=== PATIENT | male | born 1955 ===

== ENCOUNTER 2025-03-30 12:00 | Outpatient (AMB) | payer OTHER, SELFPAY ==
--- NOTE | 2025-03-30 12:44 | A.OFFPC_ITS ---
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 Patient needs form filled out. 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 Name: vivienne [id number] Allergies Sulfa (Sulfonamide Antibiotics) (Sulfa (Sulfonamides)) Allergy (Mild, Verified 03/30/25 13:34) RASH Medication List - Last Reviewed 03/30/25 by Paul Navarro MA albuterol sulfate 90 mcg/actuation 2 puffs inhalation Q4H PRN aspirin 81 mg PO DAILY azelastine 0.05% 1 drp ophthalmic (eye) BID PRN cetirizine 10 mg PO DAILY PRN docusate sodium (Stool Softener) 100 mg PO BID esomeprazole magnesium 20 mg PO DAILY fluoxetine 20 mg PO DAILY fluticasone propion-salmeterol 250-50 mcg/dose inhalation fluticasone propionate 50 mcg/actuation 1 spray intranasal BID hydrochlorothiazide 12.5 mg PO DAILY ibuprofen 800 mg PO Q8H montelukast 10 mg PO DAILY pregabalin 100 mg PO BID simvastatin 20 mg PO BEDTIME trazodone mg PO zolpidem 10 mg PO BEDTIME PRN zolpidem 5 mg PO BEDTIME PRN Tobacco use date assessed: 03/30/25 Fall risk assessment: 1 Fall in past year Last assessed Fall Risk: 03/30/25 Dental Screening Dental Screen Date: 03/30/25 Did you have a dental visit in the last 12 months?: Yes Did you have a dental problem in the last 6 months where you did not have access to dental care?: No Was dental information given to patient?: Patient has dentist HPI HPI Comments History of Present Illness Details 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 Colon: Vaccines: Tdap 2024, Shingles, Pneumococcal UTD, Flu 03/2025 AAA screen EKG: [facility] Care: Pulm referred to [facility] for PALLAVI mgmt and asthma Visual Acuity: Hearing Screening: ACP: Dietary/Nutrition/Exercise Edu provided: Y Here today to [facility] care Previous PCP: Tracy No records HTN c/o headache and dizziness w/ position changes; reports compliance w/ HCTZ Asthma/Allergies controlled on current meds GERD/constipation: controlled on current meds Trouble swallowing; had Xray done; asking about results. I do not have any records. This was done at [place] ED. MDD/Insomnia controlled on current meds, traz 50mg; was on ambien but stopped. HLD on statin and ASA, due for labs to assess control Neuropathy cont despite pregabalin use Obese BMI > 32 PALLAVI on CPAP repotrs having issues w/ machine. Will refer to [facility] Pulm to manage along w/ asthma PVD has vascular changes to legs refer to [facility] vascular HX of tinea pedia and thickened toe nails. REfer to [facility] podiatry Exam awake alert NAD MMM RRR LS CTAB chronic hemosiderin changes to anterior lower legs; PP intact. thickened toe nails bilat; missing R great toe nail Mood and affect appropriate Plan Get labs today Get records to review Cont all meds Refer to [facility] Pulm, Vascular and Podiatry Refills sent as requested RTO 2 weeks for BP recheck Total time spent caring for the patient today was 45 minutes. This includes time spent before the visit reviewing the chart, time spent during the visit, and time spent after the visit on documentation, reviewing laboratory results, diagnostic imaging, medications, performing a medically necessary evaluation, counseling on diagnoses, care coordination, ordering appropriate tests, ordering appropriate medications, review of tests performed by other providers, reporting test results with the patient, communication with other healthcare providers. [facility] Medical History (Updated 03/30/25 @ 13:42 by OVI Rodríguez) Allergic Arthritis Asthma Depression GERD (gastroesophageal reflux disease) HTN (hypertension) Neuropathy Sinusitis Spine disorder Surgical History (Updated 03/30/25 @ 12:57 by Paul Navarro MA) History of ankle surgery History of right hip replacement Family History (Updated 03/30/25 @ 12:58 by Paul Navarro MA) Brother Asthma Substance abuse Sister Diabetes Social History (Updated 03/30/25 @ 12:57 by Paul Navarro MA) Household Members: Spouse Both parents involved: No Caregiver staying overnight: No Housing: Apartment Are you a primary medicare biller to a significant other at home: No Do you presently have visiting nurse or other home services: Yes 75 years or older and lives alone: No Alcohol intake: never Patient Tobacco Use Status: Never used Tobacco e-Cigarette/Vaping Use: Never Used Second Hand Smoke Exposure: No service: No Current occupational status: disabled Current occupational exposures/hazards: No Cognitive needs: No Hearing needs: No Vision needs: Yes (wear glasses) Questionnaire PHQ-9 Over the last 2 weeks, how often have you been bothered by any of the following problems? 1. Little interest or pleasure in doing things: not at all 2. Feeling down, depressed, or hopeless: not at all 3. Trouble falling or staying asleep, or sleeping too much: not at all 4. Feeling tired or having little energy: not at all 5. Poor appetite or overeating: not at all 6. Feeling bad about yourself - or that you are a failure or have let yourself or your family down: not at all 7. Trouble concentrating on things, such as reading the newspaper or watching television: not at all 8. Moving or speaking so slowly that other people could have noticed. Or the opposite - being so fidgety or restless that you have been moving around a lot more than usual: not at all 9. Thoughts that you would be better off or of hurting yourself in some way: not at all Total score: 0 Depression Screening Interpretation: Negative Depression Screening Done: Yes 10664 - PHQ-9 Billing: Yes Source: Developed by Drs. Adeel Hassan, Ayana Best, Hussain Gao and colleagues, with an educational annetta from [employer]. Thrive Questionnaire Date Thrive assessed: 03/30/25 I am a: Patient What is your living situation today?: I have a steady place to live Within the past 12 months, did the food you bought not last and you didn't have the money to get more?: Never true Within the past 12 months, did you worry whether your food would run out before you got money to buy more?: Never true Do you have trouble paying for medicines?: No Do you have trouble getting transportation to medical appointments?: No Do you have trouble paying your heating and electricity bill?: No Do you have trouble taking care of your child, family member or friend?: No Do you have trouble with day-to-day activities such as bathing, preparing meals, shopping, managing finances, etc.?: No Are you currently unemployed and looking for a job?: No Are you interested in more education?: No Please select the resources that you would like help with: None Currently or been in a relationship where the following occur: No concerns reported THRIVE Score: 0 AUDIT C Alcohol Use Questionnaire (AUDIT-C) 1. How often do you have a drink containing alcohol?: Never 3. How often do you have six or more drinks on one occasion?: Never Total Score: 0 Score Reviewed/Action Taken: Yes ELISABET-7 AMB Questionnaire ELISABET-7 Date ELISABET - 7 assessed: 03/30/25 Feeling nervous, anxious, or on edge: 0 = Not at all Not being able to stop or control worryin = Not at all Worrying too much about different things: 0 = Not at all Trouble relaxin = Not at all Being so restless that it is hard to sit still: 0 = Not at all Becoming easily annoyed or irritable: 0 = Not at all Feeling afraid as if something awful might happen: 0 = Not at all Total ELISABET-7 score (0-4 normal; 5-9 mild; 10-14 moderate; 15-21 severe): 0 Source: Developed by Drs. Adeel Hassan, Ayana Best, Hussain Gao and colleagues, with an educational annetta from [employer]. ELISABET-7 Assessment Billing ELISABET-7 Assessment Tool: ELISABET-7 Assessment 74483 ACT Questionnaire In the past 4 weeks, how much of the time did your asthma keep you from getting as much done at work, school or at home?: None of the time During the past 4 weeks, how often have you had shortness of breath?: Not at all During the past 4 weeks, how often did your asthma symptoms wake you up at night or earlier than usual in the morning?: Not at all During the past 4 weeks, how often have you had to use your rescue inhaler or nebulizer medication?: Not at all How would you rate your asthma control during the past 4 weeks?: Completely controlled ACT Interpretation: Negative Score: 25 Physical exam (Primary Care) Vital Signs: Last Vital Signs Temp 97.2 F 03/30/25 12:51 Pulse 55 03/30/25 12:51 Resp 14 03/30/25 12:51 BP 152/80 H 03/30/25 12:51 Pulse Ox 99 03/30/25 12:51 Oxygen Delivery Method Room Air 03/30/25 12:51 BMI result Body Mass Index 32.4 BMI Assessment/Plan discussion: High BMI High, discussed plan: lifestyle Tobacco/Smoking Status: Tobacco use Status Tobacco use date assessed 03/30/25 03/30/25 12:47 Patient Tobacco Use Status Never used Tobacco 03/30/25 12:57 e-Cigarette/Vaping Use Never Used 03/30/25 12:57 PHQ-9: PHQ-9 Score PHQ-9: Total score 0 03/30/25 12:47 Depression Screening Interpretation: Negative Thrive Assessment: Date of Thrive Assessment Date Thrive assessed 03/30/25 03/30/25 12:47 Currently or been in a relationship where the following occur: No concerns reported Coding Level of Care Code New Pt Level 4 (01998) Complex EM visit Add On G2211 Diagnoses Encounter to establish care with new provider Z76.89 Laboratory exam ordered as part of routine general medical examination Z00.00 Mild intermittent asthma in adult without complication J45.20 Environmental allergies Z91.09 Obesity (BMI 30-39.9) E66.9 HLD (hyperlipidemia) E78.5 Chronic GERD K21.9 Chronic constipation K59.09 Insomnia G47.00 MDD (major depressive disorder), recurrent episode F33.9 HTN (hypertension) I10 PVD (peripheral vascular disease) I73.9 Peripheral neuropathy G62.9 Encounter for nail care Z76.89 Additional Codes ELISABET-7 Assessment Billing - ELISABET-7 Assessment Tool: ELISABET-7 Assessment 33725 ([id number]) PHQ-9 - 97402 - PHQ-9 Billing: Yes ([id number]) Asthma Control Questionnaire - ACT Interpretation: Negative ([id number]) Assessment & Plan Assessment & Plan (1) Encounter to establish care with new provider: Code(s): Z76.89 - Persons encountering health services in other specified circumstances (2) Laboratory exam ordered as part of routine general medical examination: Code(s): Z00.00 - Encounter for general adult medical examination without abnormal findings Category: Medical (3) Mild intermittent asthma in adult without complication: Code(s): J45.20 - Mild intermittent asthma, uncomplicated Category: Medical (4) Environmental allergies: Code(s): Z91.09 - Other allergy status, other than to drugs and biological substances Category: Medical (5) Obesity (BMI 30-39.9): Code(s): E66.9 - Obesity, unspecified Category: Medical (6) HLD (hyperlipidemia): Code(s): E78.5 - Hyperlipidemia, unspecified Category: Medical (7) Chronic GERD: Code(s): K21.9 - Gastro-esophageal reflux disease without esophagitis Category: Medical (8) Chronic constipation: Code(s): K59.09 - Other constipation Category: Medical (9) Insomnia: Code(s): G47.00 - Insomnia, unspecified Category: Medical (10) MDD (major depressive disorder), recurrent episode: Code(s): F33.9 - Major depressive disorder, recurrent, unspecified Category: Medical (11) HTN (hypertension): Code(s): I10 - Essential (primary) hypertension Category: Medical (12) PVD (peripheral vascular disease): Code(s): I73.9 - Peripheral vascular disease, unspecified Category: Medical (13) Peripheral neuropathy: Code(s): G62.9 - Polyneuropathy, unspecified Category: Medical (14) Encounter for nail care: Code(s): Z76.89 - Persons encountering health services in other specified circumstances Category: Medical Plan . Orders: Orders Complete Blood Count no Diff Today E66.9 - Obesity, unspecified, E78.5 - Hyperlipidemia, unspecified, I10 - Essential (primary) hypertension, Z00.00 - Encounter for general adult medical examination without abnormal findings Lipid Panel Today E66.9 - Obesity, unspecified, E78.5 - Hyperlipidemia, unspecified, I10 - Essential (primary) hypertension, Z00.00 - Encounter for general adult medical examination without abnormal findings Prostate Specific Antigen Scr Today E66.9 - Obesity, unspecified, E78.5 - Hyperlipidemia, unspecified, I10 - Essential (primary) hypertension, Z00.00 - Encounter for general adult medical examination without abnormal findings Vitamin D 25-OH Total Today E66.9 - Obesity, unspecified, E78.5 - Hyperlipidemia, unspecified, I10 - Essential (primary) hypertension, Z00.00 - En counter for general adult medical examination without abnormal findings Comprehensive Met. Panel Today E66.9 - Obesity, unspecified, E78.5 - Hyperlipidemia, unspecified, I10 - Essential (primary) hypertension, Z00.00 - Encounter for general adult medical examination without abnormal findings Hemoglobin A1c Today E66.9 - Obesity, unspecified, E78.5 - Hyperlipidemia, unspecified, I10 - Essential (primary) hypertension, Z00.00 - Encounter for general adult medical examination without abnormal findings Microalbumin, Random (w Creat) Today E66.9 - Obesity, unspecified, E78.5 - Hyperlipidemia, unspecified, I10 - Essential (primary) hypertension, Z00.00 - Encounter for general adult medical examination without abnormal findings TSH reflex Free T4 Today E66.9 - Obesity, unspecified, E78.5 - Hyperlipidemia, unspecified, I10 - Essential (primary) hypertension, Z00.00 - Encounter for general adult medical examination without abnormal findings Vitamin B12 and Folate Today E66.9 - Obesity, unspecified, E78.5 - Hyperlipidemia, unspecified, I10 - Essential (primary) hypertension, Z00.00 - Encounter for general adult medical examination without abnormal findings Referrals Pulmonology Referral G47.33 - Obstructive sleep apnea (adult) (pediatric), J45.20 - Mild intermittent asthma, uncomplicated Vascular Surgery Referral I73.9 - Peripheral vascular disease, unspecified Podiatry Referral G62.9 - Polyneuropathy, unspecified, Z76.89 - Persons encountering health services in other specified circumstances Medications: New trazodone 50 mg PO BEDTIME 90 tabs 2RF fluoxetine 20 mg PO DAILY 90 caps 2RF esomeprazole magnesium 20 mg PO DAILY 90 caps 2RF albuterol sulfate 90 mcg/actuation 2 puffs inhalation Q4H PRN 6.7 grams 2RF wheezing montelukast 10 mg PO DAILY 90 tabs 2RF Discontinued zolpidem Discontinued Reason: Order 10 mg PO BEDTIME PRN insomnia Patient Instructions: Walk-In Care (Urgent Care): We Make it Easy Walk-in for urgent medical issues such as: ? Seasonal Allergies ? Insect Bites ? Cough ? Diarrhea ? Acute Asthma Attacks ? Back, Knee or Joint Pain ? Ear Infection ? Fever without a Rash ? Headaches ? Nausea ? [place] [facility], Rash or Skin Irritation ? Sore Throat ? Sports Physicals ? Vomiting Most insurances are accepted. Patients do not need to be part of the [facility] to seek care at the walk-in clinic. Locations [address] [place] [address] Open Thursday through Thursday 8am-5pm *Hours may vary due to staffing availability. To confirm Walk-In Care hours please call. [facility] , [place] [address] ? [phone] [facility] Walk-In Care in [place] provides services to ages 18 and over. Open Thursday-Thursday: 7 a.m. to 5 p.m. and Thursday: 9 a.m. to 3 p.m.* *Hours may vary due to staffing availability. To confirm Walk-In Care hours in [place], please call [phone]. [address] [place] [address] ? [phone] [facility] Walk-In Care in [place] provides services to ages 12 and over. Open Thursday-Thursday: 8 a.m. to 5 p.m. Hours may vary due to staffing availability. To confirm Walk-In Care hours in [place], please call [phone]. LABORATORY SERVICES: [facility] Lab ? Primary Location [address] [place] [address] Thursday through Thursday 6:00 AM ? 5:00 PM Thursday 7:00 AM ? 11:00 AM* [phone] The [facility] Lab is centrally located near the front entrance of the [facility] for easy outpatient access. Convenient parking is provided for outpatients. *Hours may vary due to staffing availability. To confirm Laboratory hours for any location, please call [phone]. Offsite Location For your convenience, we offer offsite laboratory draw stations at the following locations: [address] [place] [address] ? [facility] [address], [address] Thursday through Thursday 7:30 AM ? 1:00 PM* [phone] *Hours may vary due to staffing availability. To confirm Laboratory hours for any location, please call [phone]. [place] ? [address] Thursday through Thursday 6:00 AM ? 3:30 PM* Thursday 6:30 AM ? 3 PM* [phone] *Hours may vary due to staffing availability. To confirm Laboratory hours for any location, please call [phone]. [address] [facility] Thursday through Thursday 7:30 AM ? 4:00 PM* [phone] *Hours may vary due to staffing availability. To confirm Laboratory hours for any location, please call [phone] [place] [address] Thursday through 9:00 AM ? 4:00 PM* *Hours may vary due to staffing availability. To confirm Laboratory hours for any location, please call [phone]. Appointments are not necessary. Walk-ins are welcome. Like all the departments throughout the [facility], our Lab undergoes frequent reviews to ensure the quality and accuracy of test results, and our staff takes special pride in its status as a nationally accredited facility. Patient Portal: [facility] ONE PATIENT. ONE RECORD. BETTER CARE. [facility] has a fully integrated, cutting- edge mobile electronic health information system that has revolutionized the way we care for our patients and manage our organization. This system improves communication and coordination enabling us to provide safe, higher-quality care, and an overall positive experience for staff and patients. Our first priority, as always, is to deliver the highest quality care possible. The system is running in the background supporting that priority. This portal is for all [facility] services and practices. If you are experiencing any technical difficulties with enrolling or logging into the Patient Portal please complete the [facility] Patient Portal Technical Support Form. [facility] now offers a new secure on-line interactive tool for patients to review their health information ? ?Patient Portal. This interactive web portal will enable patients and their families to take an active role in their care by providing easy, secure access to their h ealt information via the internet. The Patient Portal provides patients with instant access to their health information, including laboratory results, medications, allergies, demographic information, visit history, and more. In addition to managing their own care, parents and health care proxies with authorized consent will appreciate the ability to access the records of those individuals for whom they provide care. Please note: if you wish to gain access (Proxy) to another patient?s portal, you will be required to come to the Medical Records Department in person at [facility]. Both the patient giving proxy access and the proxy will need to provide photo identification and complete the appropriate authorization. The Patient Portal also allows track their appointments online. The [facility] Patient Portal also saves patients time by allowing them to submit updates to their demographic and contact information prior to their visits. Portal email notifications will also alert patients to any new activity on their portal, such as test results and new appointments. In order to initially enroll in the [facility] Patient Portal, you will need to enter some required information including the following: * your [facility] Medical Record number * your personal home email address * name * date of Please note: In order to enroll in the [facility] Patient Portal, we need to have your email address on file in your electronic medical record. ?The email address needs to be specific for one person (yourself) in order for your Portal enrollment to be successful. ?You can update your email address in person with our Registration staff when you are registering for a hospital visit. ?Otherwise, you will need to come to the Health Information Management (Medical Records) Department at [facility]. ?We are open from Thursday ? Thursday from 7:30 a.m. ? 4:30 p.m. ?You will be required to present a photo id. Once you have successfully enrolled in the Patient Portal, you will receive a one-time user id and password for the Portal, sent to your email address. ?This will allow you to log into the Patient Portal within 99 hrs and reset your own logon id and password, and define personal security questions. ?Once your permanent login and password have been set, you can log into the [facility] Patient Portal at any time via the blue button above or from the Portal Logon button on any page of the [facility] website. [facility] encourage all of our patients to enroll in Patient Portal as it presents a valuable opportunity for patients and their families to actively participate in their care and stay healthy Welcome to [facility]. ?We look forward to working with you.
[2025-03-30 12:51] VITALS: BP 152/80; PULSE 55; RESP 14; TEMP 36.2; O2SAT 99; BMI 32.4
[2025-03-30 13:44] VITALS: BP 150/88
== END 2025-03-30 13:49 | disposition home or self-care (01) ==
LOC: HO.HMCFM 12:01
PROVIDERS: PCP Nurse Practitioner Family; Visit Provider Nurse Practitioner Family
DX: J45.20 Mild intermittent asthma, uncomplicated (principal); E78.5 Hyperlipidemia, unspecified; Z91.09 Other allergy status, other than to drugs and biological substances; E66.9 Obesity, unspecified; Z68.32 Body mass index [BMI] 32.0-32.9, adult; K21.9 Gastro-esophageal reflux disease without esophagitis; K59.09 Other constipation; G47.00 Insomnia, unspecified; F33.9 Major depressive disorder, recurrent, unspecified; I10 Essential (primary) hypertension; I73.9 Peripheral vascular disease, unspecified; G62.9 Polyneuropathy, unspecified

== ENCOUNTER 2025-03-30 12:00 | Outpatient (REF) | payer OTHER, SELFPAY ==
[2025-03-30 18:09] LABS: Hematocrit 37.3 % (42.0-52.0); Hemoglobin 12.8 g/dl (14.0-18.0); Mean Corpuscular HGB Conc 34.3 g/dl (31.0-36.0); Mean Corpuscular Hemoglobin 29.8 pg (27.0-33.0); Mean Corpuscular Volume 86.7 fL (80.0-98.0); NRBC Abs Auto 0.000 X10*3/uL (0.0-0.012); NRBC Pct Auto 0.0 /100WBC (0.0-0.2); Platelet Count 186 X10*3/uL (160-400); Red Blood Count 4.30 X10*6/uL (4.60-5.80); White Blood Count 6.9 X10*3/uL (4.8-10.8)
[2025-03-30 18:16] LABS: Hemoglobin A1C 130.4006 umol/L
[2025-03-30 18:52] LABS: Alanine Aminotransferase 26 U/L (0-40); Albumin Level 4.2 g/dL (3.5-5.0); Alkaline Phosphatase 59 U/L (39-117); Anion Gap 11 (12-20); Aspartate Amino Transferase 43 U/L (5-37); Blood Urea Nitrogen 13 mg/dL (9-16); Calcium 9.2 mg/dL (8.4-10.2); Carbon Dioxide 28 mmol/L (22-29); Chloride 109 mmol/L (96-108); Cholesterol 137 mg/dL (<200); Estimated Glomerular Filt Rate > 60; HDL Cholesterol 57 mg/dL (>40); Potassium 4.5 mmol/L (3.3-5.1); Sodium 143 mmol/L (135-145); Total Protein 7.4 g/dL (6.5-8.0); Triglycerides 105 mg/dL (<150)
[2025-03-30 18:59] LABS: Folate 7.3 ng/mL (> or = 4.0); Vitamin B12 508 pg/mL (200-900)
== END 2025-03-30 12:01 | disposition home or self-care (01) ==
LOC: HO.WFDLDS 12:00
PROVIDERS: PCP Nurse Practitioner Family; Visit Provider Nurse Practitioner Family
DX: Z00.00 Encounter for general adult medical examination without abnormal findings (principal); Z12.5 Encounter for screening for malignant neoplasm of prostate; Z13.1 Encounter for screening for diabetes mellitus; Z76.89 Persons encountering health services in other specified circumstances; J45.20 Mild intermittent asthma, uncomplicated; E66.9 Obesity, unspecified; Z68.32 Body mass index [BMI] 32.0-32.9, adult; E78.5 Hyperlipidemia, unspecified; K21.9 Gastro-esophageal reflux disease without esophagitis; K59.09 Other constipation; G47.00 Insomnia, unspecified; F33.9 Major depressive disorder, recurrent, unspecified; I10 Essential (primary) hypertension; I73.9 Peripheral vascular disease, unspecified; G62.9 Polyneuropathy, unspecified; Z91.09 Other allergy status, other than to drugs and biological substances; K59.00 Constipation, unspecified; G47.33 Obstructive sleep apnea (adult) (pediatric); Z99.89 Dependence on other enabling machines and devices; Z71.3 Dietary counseling and surveillance
CPT/HCPCS: 36415; 80053; 80061; 82306; 82570; 82607; 82746; 83036; 84153; 84443; 85027; 96127; 96160; 99202

== ENCOUNTER 2025-05-02 11:08 | Outpatient (AMB) | payer OTHER, SELFPAY ==
--- NOTE | 2025-05-02 11:15 | MHC.OFFVIS ---
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 States his legs feel tingly at times, warm and painful when walking. 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 He reports discoloration and itchiness in the legs, which have persisted for a few years, with the right leg being more symptomatic. The patient is prediabetic, which may be contributing to his circulatory issues. Complaints include swelling of lower extremities, cramping, fatigue, and heaviness of the lower extremities. In addition he has an element of restless leg It has been affecting there daily activities including walking. It is noted more so in right leg. Patient denies any previous venous surgery or injections. Patient denies any history of DVT/ PE. Patient denies any history of phlebitis. Trial of compression includes - [id number] They now present for vascular evaluation regarding their varicose veins. [facility] Medical History Depression Neuropathy GERD (gastroesophageal reflux disease) Spine disorder Arthritis HTN (hypertension) Allergic Sinusitis Asthma Surgical History History of ankle surgery History of right hip replacement Family History Brother Asthma Substance abuse Sister Diabetes Social History Household Members: Spouse Both parents involved: No Caregiver staying overnight: No Housing: Apartment Are you a primary director of healthcare systems to a significant other at home: No Do you presently have visiting nurse or other home services: Yes 75 years or older and lives alone: No Alcohol intake: never Patient Tobacco Use Status: Never used Tobacco e-Cigarette/Vaping Use: Never Used Second Hand Smoke Exposure: No service: No Current occupational status: disabled Current occupational exposures/hazards: No Cognitive needs: No Hearing needs: No Vision needs: Yes (wear glasses) Review of Systems Const Reports as per HPI ENT Reports no additional complaints Card Denies chest pain, Denies chest pain at rest and Denies chest pain with activity Resp Denies chest congestion and Denies cough GI Reports no additional complaints Musc Details: pain over varicosities, aching of lower extremities, swelling, cramping, heaviness and tiredness, itching Denies abnormal gait Skin/Breast Reports pruritus and Denies wounds Neuro Reports no additional complaints and Denies abnormal gait Psych Denies no additional complaints Physical Exam Const General: cooperative, healthy appearing and comfortable Orientation/consciousness: oriented to person, oriented to place and oriented to time Neck Carotids: no bruits Chest Chest palpation & inspection: normal inspection of the chest and normal palpation of entire chest wall Resp Effort & Inspection: normal respiratory effort and able to speak in complete sentences Cardio Rate: regular rate Heart sounds: S1 normal heart sound present and S2 normal heart sound present Peripheral pulses: Peripheral pulses 2+ throughout GI Inspection: Yes normal to inspection Skin Other: +2 edema, large rope-like varicosities greater than 4 mm CEAP Classification C4 - skin color changes Ep - Etiology Primary As - superficial veins P - reflux General skin exam: dry skin Neuro General: oriented to person, oriented to place and oriented to time Extrem Right lower extremity: full ROM, normal capillary refill and edema Left lower extremity: full ROM, normal capillary refill and edema Psych Mental Status: mental status grossly normal Assessment & Plan Assessment & Plan (1) PVD (peripheral vascular disease): Code(s): I73.9 - Peripheral vascular disease, unspecified Category: Medical Plan: In terms of arterial disease I think he is stable. He does have palpable arterial pulses and does not demonstrate clinical stigmata of arterial disease. Due to the discoloration and swelling we will work him up for venous disease. (2) Varicose veins of right lower extremity with inflammation: Code(s): I83.11 - Varicose veins of right lower extremity with inflammation Category: Medical Plan: Patient may have an element of venous insufficiency. We have discussed the pathophysiology of this in addition I have given him an information pamphlet regarding this. I have taken the liberty of ordering venous insufficiency testing. The patient will follow up with us after testing. Thank you for allowing us to assist in his care. If there are any questions or concerns please do not hesitate to contact us. Orders: Orders US venous duplex LE BI Today I83.11 - Varicose veins of right lower extremity with inflammation Coding Level of Care Code New Pt Level 4 (73972) Diagnoses PVD (peripheral vascular disease) I73.9 Varicose veins of right lower extremity with inflammation I83.11
== END 2025-05-02 11:45 | disposition home or self-care (01) ==
LOC: HO.HVS 11:09
PROVIDERS: PCP Nurse Practitioner Family; Visit Provider Surgery Vascular Surgery
DX: I73.9 Peripheral vascular disease, unspecified (principal); I83.11 Varicose veins of right lower extremity with inflammation
CPT/HCPCS: 99204

== ENCOUNTER → 2025-05-02 11:08 | Outpatient (BNVA) | payer OTHER, SELFPAY | PROVIDERS: PCP Nurse Practitioner Family; Visit Provider Surgery Vascular Surgery | DX: I83.11 Varicose veins of right lower extremity with inflammation (principal); I73.9 Peripheral vascular disease, unspecified | CPT/HCPCS: 99202 ==

== ENCOUNTER 2025-05-10 13:45 | Outpatient (AMB) | payer OTHER, SELFPAY ==
[2025-05-10 13:56] VITALS: BMI 32.9
--- NOTE | 2025-05-10 13:56 | A.OFFVIS_ITS ---
Vital Signs 05/10/25 13:56 Height 5 ft 5 in Weight 198 lb BMI 32.9 Intake Visit Reasons: Peripheral neuropathy Intake Note: Isidro is a 69 year old male who presents today as a new patient for an evaluation of his peripheral neuropathy. this has been going on for over 3 years however he is currently not a diabetic. Patient is currently prescribed pregabalin by his PCP. Facilities Maintenance Assistant Required: Yes Facilities Maintenance Assistant Services: Facilities Maintenance Assistant Present Facilities Maintenance Assistant Name: [id number] Allergies Sulfa (Sulfonamide Antibiotics) (Sulfa (Sulfonamides)) Allergy (Mild, Verified 05/10/25 13:57) RASH Medication List - Last Reconciled 05/10/25 by Tamia Wyatt DPM albuterol sulfate 90 mcg/actuation 2 puffs inhalation Q4H PRN ammonium lactate 12% 1 appl topical BID aspirin 81 mg PO DAILY azelastine 0.05% 1 drp ophthalmic (eye) BID PRN cetirizine 10 mg PO DAILY PRN docusate sodium (Stool Softener) 100 mg PO BID esomeprazole magnesium 20 mg PO DAILY fluoxetine 20 mg PO DAILY fluticasone propion-salmeterol 250-50 mcg/dose inhalation fluticasone propionate 50 mcg/actuation 1 spray intranasal BID hydrochlorothiazide 12.5 mg PO DAILY ibuprofen 800 mg PO Q8H montelukast 10 mg PO DAILY pregabalin 100 mg PO BID simvastatin 20 mg PO BEDTIME trazodone 50 mg PO BEDTIME HPI Comments Details: The patient is a 69-year-old male with a past medical history as seen below p resenting with issues related to his feet, including nail changes, thickened skin, and neuropathy. The patient reports tingling sensations, burning, and numbness to the lower extremities. Patient also states that he has peripheral vascular disease and has noted discoloration and changes to the skin. The patient has noticed changes in his toenails, including increased thickness, discoloration, and changes to nail shape. Patient previously had total nail avulsions with matrixectomy to bilateral hallucal nails but states that he has noticed partial growth of the toenail to the right hallux. The patient also reports skin dryness, particularly on the heels and plantar aspect of the feet. He denies any recent pedal injuries. He denies any other pedal concerns. COUNTS INCLUDE 234 BEDS AT THE [facility] Medical History Depression Neuropathy GERD (gastroesophageal reflux disease) Spine disorder Arthritis HTN (hypertension) Allergic Sinusitis Asthma Surgical History History of ankle surgery History of right hip replacement Family History Brother Asthma Substance abuse Sister Diabetes Social History Household Members: Spouse Both parents involved: No Caregiver staying overnight: No Housing: Apartment Are you a primary intensive care unit registered nurse to a significant other at home: No Do you presently have visiting nurse or other home services: Yes 75 years or older and lives alone: No Alcohol intake: never Patient Tobacco Use Status: Never used Tobacco e-Cigarette/Vaping Use: Never Used Second Hand Smoke Exposure: No service: No Current occupational status: disabled Current occupational exposures/hazards: No Cognitive needs: No Hearing needs: No Vision needs: Yes (wear glasses) Review of Systems Const Details: - Neurological: Reports tingling, numbness, and burning sensations. - Integumentary: Reports toenail changes and skin dryness on the feet. All systems reviewed & are unremarkable except as noted in HPI and below Physical Exam Vital Signs: BMI result Body Mass Index 32.9 Extrem Other: Bilateral lower extremity focused physical exam: Derm: Toenails X 9 noted to be discolored, dystrophic, and thickened with subungual debris noted. Evidence of total nail avulsion to the left hallux with no nail growth. Partial nail growth noted to the right hallux. No open lesions abrasions or wounds noted. Hyperkeratotic areas noted to the plantar aspect of the feet diffusely. Xerosis of skin noted. No clinical signs of infection. No purulence, bleeding, or drainage noted. Hyperpigmentation noted diffusely to the lower extremities. Vascular: DP pulses palpable. PT pulses nonpalpable. Capillary refill time less than 3 seconds. Temperature gradient warm to warm. Pedal hair diminished. Varicosities noted. Minimal edema noted. Neuro: Protective sensation is grossly diminished. MSK: No pain on palpation to the lower extremities. Range of motion of the forefoot, hindfoot, and ankles within normal limits. No crepitus or fluctuance noted. Nonantalgic unassisted gait noted. No gross abnormalities noted. Assessment & Plan Assessment & Plan (1) Tinea unguium: Code(s): B35.1 - Tinea unguium Category: Medical (2) Nail dystrophy: Code(s): L60.3 - Nail dystrophy Category: Medical (3) Nail disorder: Code(s): L60.9 - Nail disorder, unspecified Category: Medical (4) Other specified epidermal thickening: Code(s): L85.8 - Other specified epidermal thickening Category: Medical (5) Xerosis of skin: Code(s): L85.3 - Xerosis cutis Category: Medical Plan Patient was informed and verbally consented to the use of an ambient scribe for clinic note documentation during this visit. I discussed with the patient the presence of onychomycosis and the importance of regular nail care to prevent complications due to neuropathy. We also talked about the use of ammonium lactate to address skin dryness and the potential benefits of compression socks for managing leg swelling and bruising. - Prescribed ammonium lactate to be used twice daily. - Advised patient to avoid barefoot walking and to wear supportive shoe gear. - Recommend routine nail care due to complications from neuropathy. - Encouraged the use of compression socks to manage leg swelling and bruising. RTC in 9 weeks. Medications: New ammonium lactate 12% 1 appl topical BID 385 grams 1RF L85.3 - Xerosis cutis, L85.8 - Other specified epidermal thickening Coding Level of Care Code New Pt Level 3 (83384) Diagnoses Tinea unguium B35.1 Nail dystrophy L60.3 Nail disorder L60.9 Other specified epidermal thickening L85.8 Xerosis of skin L85.3 Time Spent (min) 31
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
--- OUTSIDE RECORDS SUMMARY | 2025-05-10 16:39 | XMS_ITS | Data Portability ---
Author Organization [facility], [facility] Address [address] [place] [address] Assessment No assessment recorded. Plan of Treatment Reminders Order Date Submit Date Provider Last Modified By Organization Details Last Modified Time Details Appointments None recorded. Lab urinalysis , complete 2022 023 [place] [facility], [address] [place] [address], [place], [address], 10:06:30 urinalysis , dipstick 2022 023 [place] _[facility], [address] [place], [address], 16:41:47 Referral None recorded. Procedures None recorded. Surgeries None recorded. Imaging None recorded. Medication Orders None recorded. Patient TargetsNo targets recorded. Patient Instructions Encounter Date Encounter Id Patient Instructions Last Modified By Organization Details Last Modified Time 02/11/2023 [id number] blood in the urine: care instructions [email or web address] Not available 02/11/2023 13:30:43 Reason for Referral None Reported. Results Created Date Observation Date Name Description Value Unit Range Abnormal Flag Note LastModifiedBy Organization Detail LastModifiedTime 02/12/2002/13/2023 URINA LYSIS , COMPL ETE specific gravity 1.022 1.005- 1.030 Not Available [facility] ([facility]) [address] [facility], [place], [address], 02/13/2023 10:06:29 02/12/2002/13/2023 URINA LYSIS , COMPL ETE pH 5.5 5.0-7. 5 Not Available [facility] ([facility]) [address] [place], [address], 02/13/2023 10:06:29 02/12/20 23 02/13/2023 URINA LYSIS , COMPL ETE urine-color YELLOW yellow Not Available [facility] ([facility]) [address] [facility], [place], [address], 02/13/2023 10:06:29 02/12/20 23 02/13/2023 URINA LYSIS , COMPL ETE appearance CLEAR clear Not Available [facility] ([facility]) [address] [place], [address], 02/13/2023 10:06:29 02/12/20 23 02/13/2023 URINA LYSIS , COMPL ETE WBC esterase NEGATI VE negati ve Not Available [facility] ([facility]) [address] [place], [address], 02/13/2023 10:06:29 02/12/20 23 02/13/2023 URINA LYSIS , COMPL ETE protein 1+ negati ve/tra ce abnormal Not Available [facility] ([facility]) [address] [facility], [place], [address], 02/13/2023 10:06:29 02/12/20 23 02/13/2023 URINA LYSIS , COMPL ETE glucose NEGATI VE negati ve Not Available [facility] ([facility]) [address] [place], [address], 02/13/2023 10:06:29 02/12/20 23 02/13/2023 URINA LYSIS , COMPL ETE ketones NEGATI VE negati ve Not Available [facility] ([facility]) [address] [place], [address], 02/13/2023 10:06:29 02/12/20 23 02/13/2023 URINA LYSIS , COMPL ETE occult blood NEGATI VE negati ve Not Available [facility] ([facility]) [address] [place], [address], 02/13/2023 10:06:29 02/12/20 23 02/13/2023 URINA LYSIS , COMPL ETE bilirubin NEGATI VE negati ve Not Available [facility] ([facility]) [address] [place], [address], 02/13/2023 10:06:29 02/12/20 23 02/13/2023 URINA LYSIS , COMPL ETE urobilinogen ,semi-qn 0.2 mg/dL 0.2-1. 0 Not Available [facility] ([facility]) [address] [place], [address], 02/13/2023 10:06:29 02/12/20 23 02/13/2023 URINA LYSIS , COMPL ETE nitrite, urine NEGATI VE negati ve Not Available [facility] ([facility]) [address] [place], [address], 02/13/2023 10:06:29 02/12/20 23 02/13/2023 URINA LYSIS , COMPL ETE microscopic examination SEE BELOW: Micro scopi c was indic ated and was perfo rmed. Not Available [facility] ([facility]) [address] [place], [address], 02/13/2023 10:06:29 02/12/20 23 02/13/2023 URINA LYSIS , COMPL ETE WBC NONE SEEN /hpf 0 - 5 Not Available [facility] ([facility]) [address] [place], [address], 02/13/2023 10:06:29 02/12/20 23 02/13/2023 URINA LYSIS , COMPL ETE RBC NONE SEEN /hpf 0 - 2 Not Available [facility] ([facility]) [address] [place], [address], 02/13/2023 10:06:29 02/12/20 23 02/13/2023 URINA LYSIS , COMPL ETE epithelial cells (non renal) NONE SEEN /hpf 0 - 10 Not Available [facility] ([facility]) [address] [facility], [place], [address], 02/13/2023 10:06:29 02/12/20 23 02/13/2023 URINA LYSIS , COMPL ETE epithelial cells (renal) SECURITY REP Not Available [facility] ([facility]) [address] [facility], [place], [address], 02/13/2023 10:06:29 02/12/20 23 02/13/2023 URINA LYSIS , COMPL ETE casts NONE SEEN /lpf none seen Not Available [facility] ([facility]) [address] [facility], [place], [address], 02/13/2023 10:06:29 02/12/20 23 02/13/2023 URINA LYSIS , COMPL ETE cast type SECURITY REP Not Available [facility] ([facility]) [address] [facility], [place], [address], 02/13/2023 10:06:29 02/12/20 23 02/13/2023 URINA LYSIS , COMPL ETE crystals SECURITY REP Not Available [facility] ([facility]) [address] [facility], [place], [address], 02/13/2023 10:06:29 02/12/20 23 02/13/2023 URINA LYSIS , COMPL ETE crystal type SECURITY REP Not Available [facility] ([facility]) [address] [place], [address], 02/13/2023 10:06:29 02/12/20 23 02/13/2023 URINA LYSIS , COMPL ETE mucus threads SECURITY REP Not Available [facility] ([facility]) [address] [facility], [place], [address], 02/13/2023 10:06:29 02/12/20 23 02/13/2023 URINA LYSIS , COMPL ETE bacteria NONE SEEN none seen/f ew Not Available [facility] ([facility]) [address] [facility], [place], [address], 02/13/2023 10:06:29 02/12/20 23 02/13/2023 URINA LYSIS , COMPL ETE yeast SECURITY REP Not Available [facility] ([facility]) [address] [facility], [place], [address], 02/13/2023 10:06:29 02/12/20 23 02/13/2023 URINA LYSIS , COMPL ETE trichomonas SECURITY REP Not Available [facility] ([facility]) [address] [facility], [place], [address], 02/13/2023 10:06:29 02/12/20 23 02/13/2023 URINA LYSIS , COMPL ETE comment SECURITY REP Not Available [facility] ([facility]) [address] [facility], [place], [address], 02/13/2023 10:06:29 02/12/20 23 02/13/2023 URINA LYSIS , COMPL ETE microscopic examination SECURITY REP Not Available [facility]) [address] [facility], [place], [address], 02/13/2023 10:06:29 02/12/20 23 02/13/2023 NTI URINE TUBE (RODRIGUEZ ) nti urine tube (rodriguez) Commen t Dear Docto r, The requi sitio n we recei omega for the above patie nt has no test indic ated on the reque st form for one or more of the speci mens submi tted. [place] s requi res a writt en and mariangel d reque st be forwa rded to the testi ng labor atory follo wing the verba l order of a labor atory test. Nae e compl ete the follo wing and fax to [phone] to exped ite forrest griffin. Requi red test name( s)___ ___ Requi red test numbe r(s)_ ___ Physi juan carlos signa ture_ __ Date_ __ Diagn osis Code: __ In order to maint ain sampl e integ rity, sampl es will be store d for two to seven days from the date of recei pt. A urine cultu re trans port was recei omega with no test indic ated. If testi ng is requi red on this speci men, nae winter ct the [facility] Clien t Inqui ry/Te chnic al Servi gracia Depar tment to obtai n a Reque st for Writt en Autho rizat ion Form. Not Available [facility] ([facility]) [address] [facility], [place], [address], 02/13/2023 10:06:31 02/13/20 23 02/12/2023 urina lysis , dipst ick Unknown Analyte Normal = light yellow Not Available [facility] [address] [facility], [place], [address], 02/11/2023 13:08:08 02/13/20 23 02/12/2023 urina lysis , dipst ick Unknown Analyte Yellow Not Available [facility] [address] [place] [address], [phone], 02/11/2023 13:08:08 02/13/20 23 02/12/2023 urina lysis , dipst ick Unknown Analyte Normal = clear Not Available [facility] [address] [place] [address], [phone], 02/11/2023 13:08:08 02/13/20 23 02/12/2023 urina lysis , dipst ick Unknown Analyte Clear Not Available [facility] [address] [place] [address], [phone], 02/11/2023 13:08:08 02/13/20 23 02/12/2023 urina lysis , dipst ick Unknown Analyte Negati ve Not Available [facility] [address] [place] [address], [address], 02/11/2023 13:08:08 02/13/20 23 02/12/2023 urina lysis , dipst ick Unknown Analyte Negati ve Not Available [facility] [address] [place] [address], [phone], 02/11/2023 13:08:08 02/13/20 23 02/12/2023 urina lysis , dipst ick Unknown Analyte Normal = negati ve Not Available [facility] [address] [place] [address], [phone], 02/11/2023 13:08:08 02/13/20 23 02/12/2023 urina lysis , dipst ick Unknown Analyte Normal = Negati ve Not Available [facility] [address] [place] [address], [phone], 02/11/2023 13:08:08 02/13/20 23 02/12/2023 urina lysis , dipst ick Unknown Analyte Normal = Negati ve Not Available [facility] [address] [place] [address], [phone], 02/11/2023 13:08:08 02/13/20 23 02/12/2023 urina lysis , dipst ick Unknown Analyte Negati ve Not Available [facility] [address] [place] [address], [phone], 02/11/2023 13:08:08 02/13/20 23 02/12/2023 urina lysis , dipst ick Unknown Analyte Normal = 1.010, 1.015, 1.020 Not Available [facility] [address] [place] [address], [phone], 02/11/2023 13:08:08 02/13/20 23 02/12/2023 urina lysis , dipst ick Unknown Analyte 1.020 Not Available [facility] [address] [place] [address], [phone], 02/11/2023 13:08:08 02/13/20 23 02/12/2023 urina lysis , dipst ick Unknown Analyte Normal = Negati ve Not Available [facility] [address] [place] [address], [phone], 02/11/2023 13:08:08 02/13/20 23 02/12/2023 urina lysis , dipst ick Unknown Analyte Modera te Not Available [facility] [address] [place] [address], [phone], 02/11/2023 13:08:08 02/13/20 23 02/12/2023 urina lysis , dipst ick Unknown Analyte Normal = 6.5, 7.0, 7.5, 8.0 Not Available [facility] [address] [place] [address], [phone], 02/11/2023 13:08:08 02/13/20 23 02/12/2023 urina lysis , dipst ick Unknown Analyte 5.5 Not Available e [facility] [address] [place] [address], [phone], 02/11/2023 13:08:08 02/13/20 23 02/12/2023 urina lysis , dipst ick Unknown Analyte Normal = Negati ve Not Available [facility] [address] [place] [address], [phone], 02/11/2023 13:08:08 02/13/20 23 02/12/2023 urina lysis , dipst ick Unknown Analyte 30 mg/dL Not Available [facility] [address] [place] [address], [phone], 02/11/2023 13:08:08 02/13/20 23 02/12/2023 urina lysis , dipst ick Unknown Analyte Normal = 0.2, 1.0 Not Available [facility] [address] [place] [address], [phone], 02/11/2023 13:08:08 02/13/20 23 02/12/2023 urina lysis , dipst ick Unknown Analyte 0.2 E.U./d L Not Available [facility] [address] [place] [address], [phone], 02/11/2023 13:08:08 02/13/20 23 02/12/2023 urina lysis , dipst ick Unknown Analyte Normal = Negati ve Not Available [facility] [address] [place] [address], [phone], 02/11/2023 13:08:08 02/13/20 23 02/12/2023 urina lysis , dipst ick Unknown Analyte Negati ve Not Available [facility] [address] [place], [address], 02/11/2023 13:08:08 02/13/20 23 02/12/2023 urina lysis , dipst ick Unknown Analyte Normal = Negati ve Not Available [facility] [address] [place], [address], 02/11/2023 13:08:08 02/13/20 23 02/12/2023 urina lysis , dipst ick Unknown Analyte Negati ve Not Available [facility] [address] [place], [address], 02/11/2023 13:08:08 Result Notes None recorded. Problems Name Problem SNOMED Code Status Onset Date Resolution Date Notes Provider Name and Address Organization Details Recorded Time Hypertensive disorder 07616848 Active 2022 ALBERT Bennett - [facility] 3 12:25:48 Problem Notes None recorded. Medical Equipment None Reported. Allergies Allergen ID Allergen Name Allergen Category Reaction Reaction Severity Criticality Documentation Date Start Date Code Code System Note Provider Name and Address Organization Details Recorded Time 961311 Substance with sulfonami de structure and antibacte rial mechanism of action (substanc e) medicatio n Not available Not available Not available 02/11/2023 52725 8003 SNOMED ALBERT Bennett [facility] 3 12:24:55 Medications Name Sig Start Date Stop Date Status Note LastModified by Organization Details LastModified Time aspirin 81 mg tablet,eric yed release TAKE 1 TABLET BY MOUTH ONCE DAILY active Not Available Not Available No t Available meloxicam 7.5 mg tablet TAKE 1 TABLET BY MOUTH ONCE DAILY active Not Available Not Available No t Available ropinirole 0.25 mg tablet TAKE 1 TABLET BY MOUTH ONCE DAILY AT BEDTIME active Not Available Not Available No t Available simvastatin 20 mg tablet TAKE 1 TABLET BY MOUTH ONCE DAILY AT BEDTIME active Not Available Not Available No t Available erythromyci n 5 mg/gram (0.5 %) eye ointment INSTILL ONE-FOURT H INCH OINTMENT INTO AFFECTED EYE(S) AT BEDTIME OR NEEDED active Not Available Not Available No t Available fluoxetine 10 mg capsule TAKE 1 CAPSULE BY MOUTH ONCE DAILY WITH 20MG CAPSULE (TOTAL DOSE 30MG) active Not Available Not Available No t Available gabapentin 300 mg capsule TAKE 3 CAPSULES BY MOUTH TWICE DAILY active Not Available Not Available No t Available diclofenac sodium 75 mg tablet,eric yed release TAKE 1 TABLET BY MOUTH TWICE DAILY NEEDED FOR PAIN .TAKE WITH FOOD active Not Available Not Available No t Available montelukast 10 mg tablet TAKE 1 TABLET BY MOUTH ONCE DAILY active Not Available Not Available No t Available mupirocin 2 % topical ointment APPLY OINTMENT TOPICALLY THREE TIMES DAILY active Not Available Not Available No t Available zolpidem 10 mg tablet TAKE 1 TABLET BY MOUTH ONCE DAILY AT BEDTIME NEEDED FOR INSOMNIA active Not Available Not Available No t Available albuterol sulfate HFA 90 mcg/actuati on aerosol inhaler INHALE 2 PUFFS BY MOUTH 4 TIMES DAILY NEEDED FOR WHEEZING active Not Available Not Available No t Available fluoxetine 20 mg capsule TAKE 1 CAPSULE BY MOUTH ONCE DAILY active Not Available Not Available No t Available fluticasone propionate 50 mcg/actuati on nasal spray,suspe nsion USE 1 SPRAY(S) IN EACH NOSTRIL TWICE DAILY active Not Available Not Available No t Available loratadine 10 mg tablet TAKE 1 TABLET BY MOUTH ONCE DAILY active Not Available Not Available No t Available tobramycin 0.3 %-dexametha sone 0.1 % eye drops,suspe nsion INSTILL 1 DROP INTO EACH EYE 4 TIMES DAILY FOR A WEEK active Not Available Not Available No t Available esomeprazol e magnesium 20 mg capsule,del ayed release TAKE 1 CAPSULE BY MOUTH ONCE DAILY active Not Available Not Available No t Available hydrochloro thiazide 12.5 mg tablet TAKE 1 TABLET BY MOUTH ONCE DAILY active Not Available Not Available No t Available BinaxNOW COVID-19 Ag Self Test kit Use as Directed on the Package 02/11 completed Not Available Not Available Not Available Vitals Date Recorded Body height Body mass index (BMI) Body weight Oxygen saturation Oxygen saturation in Arterial blood by Pulse oximetry Heart rate Respiratory rate Body temperature Systolic And Diastolic Provider Name and Address Organization Details Last Updated DateTime 3 165.1 cm 32.4 kg/m2 89087.5 1 g 97 % 97 % 89 /min 18 /min 97.8 [degF] 124/91 mm[Hg] LIONEL GREEN PA - [facility] 3 12:24:19 Social History None recorded. Functional Status None recorded. Mental Status None recorded. Family History Nothing Reported. Medical History No medical history recorded. Immunizations Vaccine Type Date Status Note Provider Nam e and Address Organization Details Recorded Time zoster recombinant 2 completed LIONEL GREEN null, PA - [facility] 02/11/2023 12:24:43 zoster recombinant 2 completed LIONEL GREEN null, PA - [facility] 02/11/2023 12:24:43 Influenza, high-dose, quadrivalent, PF 2 completed LIONEL GREEN null, PA - [facility] 02/11/2023 12:24:43 Influenza, high-dose, quadrivalent, PF 1 completed LIONEL GREEN null, PA - [facility] 02/11/2023 12:24:43 COVID-19, mRNA, LNP-S, PF, 100 mcg/0.5mL dose or 50 mcg/0.25mL dose 1 completed LIONEL GREEN null, PA - [facility] 02/11/2023 12:24:43 COVID-19, mRNA, LNP-S, PF, 100 mcg/0.5mL dose or 50 mcg/0.25mL dose 1 completed LIONEL GREEN null, PA - [facility] 02/11/2023 12:24:43 COVID-19, mRNA, LNP-S, PF, 100 mcg/0.5mL dose or 50 mcg/0.25mL dose 1 completed LIONEL GREEN null, PA - [facility] 02/11/2023 12:24:43 Pneumococcal conjugate PCV20, polysaccharide DCM264 conjugate, adjuvant, PF 2 completed LIONEL GREEN null, PA - [facility] 02/11/2023 12:24:43 influenza, unspecified formulation 0 completed LIONEL GREEN null, PA - [facility] 02/11/2023 12:24:43 Tdap 3 completed LIONEL GREEN null, PA - [facility] 02/11/2023 12:24:43 pneumococcal, unspecified formulation 0 completed LIONEL GREEN null, PA - [facility] 02/11/2023 12:24:43 Influenza, split virus, trivalent, preservative 3 completed LIONEL GREEN null, PA - [facility] 02/11/2023 12:24:43 Influenza, split virus, trivalent, PF 6 completed LIONEL GREEN null, PA - [facility] 02/11/2023 12:24:43 Influenza, split virus, quadrivalent, PF 8 completed LIONEL GREEN null, PA - [facility] 02/11/2023 12:24:43 Past Encounters Encounter ID Performer Location Encounter Start Date Encounter Closed Date Diagnosis/Indication Diagnosis SNOMED-CT Code Diagnosis ICD10 Code Diagnosis IMO Codes Diagnosis Note [id number] [facility] [address] [place] [address] 12/12/2019 12:11:16 12/12/2019 12:45:42 [id number] [place] [address] [phone] 02/11/2023 12:07:07 02/11/2023 13:34:02 Muscle pain 42668588 M79.10 Discussed different possibilit ies of cause of bodyaches, chills and fatigue. Sometimes a Virus can present in this manner. Covid was negative and Urine shows you have no infection or dehydratio n. Suggest resting and hydrating if there is any worsening of symptoms should be seen again immediatel y or if no improvemen t to return for further workup Microscopic hematuria 19 7141633 R31.29 microscopi c blood in urineRhabd o can cause this but suspicion is low for this.Will send urine for Microscopy THis should be repeated with PCP. Health Concerns Section Related Observation LastModified by Organization Detai ls LastModified Time None Recorded Concern Status LastModified by Organization Details LastModified Time None Recorded Advance Directives Directive None Recorded Payers Insurance Date Sequence Insurance Name Policy Number Policy Connolly Covered Member ID Connolly Member ID Guarantor Name 02/22/2023 1 [facility] - MEDICARE PREFERRED (MEDICARE REPLACEMENT HMO) [employer] Isidro Anton Manuel [id number] Isidro Jackson 02/11/2023 1 [facility] - DOS PRIOR TO 2022 - DUAL ELIGIBLE (MEDICARE REPLACEMENT/ADV ANTAGE - HMO) Isidro Manuel [id number] Isidro Jackson Notes Date Note Type Note Provider Name and Address Organization Details Recorded Time 02/11/2023 text/html Generic HPI TemplateReported by PatientHPIFor context, patient reportsno foreign travel. 3 days of feeling bodyaches chills and sweats. [id number] after bee stings, no visble lesions from bees on skin Narcisa Avendano MD [address] [place] [address] [place], [address], PA - [facility] 02/22/2023 08:21:05
--- OUTSIDE RECORDS SUMMARY | 2025-05-10 16:39 | XMS_ITS | Encounter Summary ---
Author Organization [facility] Address [address] [place] [address] Care Team Providers Care Automotive Mechanic Name Role Phone Physician, Pcp Unknown Primary Care Provider Lainey vailable Encounter Details Date Type Department Care Team (Late st Contact Info) Description 09/16/2024 Lab Requisition [facility] - Main Lab [address] [facility] [place] [address] Tiburcio Mistry PA [address] [place] [phone] Gross hematuria Social History Tobacco Use Types Packs/Day Years Used Date Smoking Tobacco: Former Alcohol Use Standard Drinks/Week Comments Not Asked 0 (1 standard drink = 0.6 oz pur e alcohol) Sex and Gender Information Value Date Recorded Sex Assigned at Not on file Legal Sex Male 4:56 PM EST Gender Identity Not on file Sexual Orientation Not on file documented as of this encounter Plan of Treatment Not on file documented as of this encounter Procedures Procedure Name Priority Date/Time Associated Diagnosis Comments AP OUTSIDE CONSULT Routine 09/12/2024 12 :00 AM EDT Gross hematuria documented in this encounter Results * Anatomic pathology outside consult (09/12/2024 12:00 AM EDT) Addendum Results of UroVysion fluorescence in situ hybridization (FISH) testing: CEP3: Normal CEP7: Normal CEP17: Normal LSI 9p21: Normal Interpretation: Normal profile Controls stained appropriately. Note: The results are intended as a screening device and should be interpreted in association with other clinical and pathological findings. 09/21/2024 9:38 AM EDT [facility] Addendum electronically signed by Rubens Lopez MD on 09/21/2024 at 9:38 AM Final Diagnosis A. Urine, Voided, ([id number]): Negative for high grade urothelial carcinoma. Note: UroVysion testing to follow. 09/21/2024 9:38 AM EDT [facility] Clinical Information Gross hematuria R31.0 Urine Cytology/FISH (now) 09/21/2024 9:38 AM EDT [facility] Gross Description A. Urine, Voided, ([id number]): Received one ThinPrep slide for cytology and one ThinPrep slide for UroVysion FISH 09/21/2024 9:38 AM EDT [facility] Disclaimer Unless otherwise specified, all tissue is 10% NB formalin fixed and paraffin embedded. Technical pathology services provided by [facility] [address] [address] [place] [address] (CLIA #[id number]/Yin Grimes MD, Critical Care Unit Manager) 09/21/2024 9:38 AM EDT [facility] Tissue Urine specimen from urethra / Unknown 09/12/2024 09/16/2024 1:43 PM EDT us [facility] PATHOLOGY ORDERABLES Edite d Result - Final [facility] [address] [place] [address], documented in this encounter Visit Diagnoses Diagnosis Gross hematuria documented in this encounter Care Teams Automotive Mechanic Relationship Specialty Start Date End Date Physician, Pcp Unknown PCP - General 09/16/24 documented as of this encounter
== END 2025-05-10 14:12 | disposition home or self-care (01) ==
LOC: HO.HPODS 13:46
PROVIDERS: PCP Nurse Practitioner Family; Visit Provider Student in an Organized Health Care Education/Training Program
DX: B35.1 Tinea unguium (principal); L60.3 Nail dystrophy; L60.9 Nail disorder, unspecified; L85.8 Other specified epidermal thickening; L85.3 Xerosis cutis
CPT/HCPCS: 99203

== ENCOUNTER → 2025-05-10 13:45 | Outpatient (BNVA) | payer OTHER, SELFPAY | PROVIDERS: PCP Nurse Practitioner Family; Visit Provider Student in an Organized Health Care Education/Training Program | DX: B35.1 Tinea unguium (principal); L60.3 Nail dystrophy; L60.9 Nail disorder, unspecified; L85.8 Other specified epidermal thickening; L85.3 Xerosis cutis | CPT/HCPCS: 99202 ==

== ENCOUNTER 2025-05-23 09:24 | Outpatient (REF) | payer OTHER, SELFPAY ==
[2025-05-23 14:34] LABS: MANUAL DIFF FLAG NO
[2025-05-23 14:49] LABS: Hematocrit 39.6 % (42.0-52.0); Hemoglobin 13.1 g/dl (14.0-18.0); Imm Gran Abs Auto 0.01 X10*3/uL (0.00-0.03); Imm Gran Pct Auto 0.2 % (0.0-0.4); Lymphocytes Absolute Auto 2.3 X10*3/uL (1.2-4.9); Mean Corpuscular HGB Conc 33.1 g/dl (31.0-36.0); Mean Corpuscular Hemoglobin 28.9 pg (27.0-33.0); Mean Corpuscular Volume 87.2 fL (80.0-98.0); NRBC Abs Auto 0.000 X10*3/uL (0.0-0.012); NRBC Pct Auto 0.0 /100WBC (0.0-0.2); Platelet Count 211 X10*3/uL (160-400); Red Blood Count 4.54 X10*6/uL (4.60-5.80); White Blood Count 5.5 X10*3/uL (4.8-10.8)
[2025-05-29 09:08] LABS: Class Cat Dander 2; Class Cockroach 1; Class Dermatophagoides farinae 0; Class Mouse Urine Protein 0/1; D002 - IgE D farinae <0.10; E001 - IgE Cat Dander 1.14; I006-IgE Cockroach, German 0.58
[2025-05-29 09:09] LABS: Class Alternaria alternata 0; Class Aspergillus fumigatus 0; Class Cladosporium herbarum 0; Class Dog Dander 0/1; Class Mountain Cedar 0/1; Class Timothy Grass 3; E005 - IgE Dog Dander 0.15; G006 - IgE Timothy Grass 15.80; M002 - IgE Cladosporium herbar <0.10; M003 - IgE Aspergillus fumigat <0.10; M006 - IgE Alternaria alternat <0.10; T006 - IgE Cedar, Mountain 0.15
[2025-05-29 09:10] LABS: Class Cottonwood 0/1; Class Oak 0/1; Class Sycamore 0/1; Class Walnut Tree 0/1; Class White Ash 0/1; T007 - IgE Oak, White 0.21; T010 - IgE Walnut 0.21; T011 - IgE Maple Leaf Sycamore 0.21; T014 - IgE Cottonwood 0.23; T015 - IgE Ash, White 0.20
[2025-05-29 09:11] LABS: Class Bermuda Grass 2; Class Birch 0/1; Class Derm. pterony 0; Class Mugwort 0/1; Class Penicillium crysogenum 0; Class White Mulberry 0/1; T070 - IgE White Mulberry 0.13; W006 - IgE Mugwort 0.13
[2025-05-29 09:12] LABS: Class Common Ragweed 3; Class Elm 0/1; Class Maple Box Elder 1; Class Rough Pigweed 0/1; Class Sheep Sorrel 0/1; T001 IgE Maple/Box Elder 0.36; T008 IgE Elm, American 0.29; W001 - IgE Ragweed, Short 4.31; W014 IgE Pigweed, Common 0.15; W018 IgE Sheep Sorrel 0.22
== END 2025-05-23 09:25 | disposition home or self-care (01) ==
LOC: HO.WFDLDS 09:24
PROVIDERS: PCP Nurse Practitioner Family; Referring Provider Nurse Practitioner Family; Visit Provider Nurse Practitioner Family
DX: G47.33 Obstructive sleep apnea (adult) (pediatric) (principal); R91.8 Other nonspecific abnormal finding of lung field; J45.909 Unspecified asthma, uncomplicated; Z91.09 Other allergy status, other than to drugs and biological substances; Z87.891 Personal history of nicotine dependence
CPT/HCPCS: 36415; 82785; 85025; 86003; 99202

== ENCOUNTER 2025-05-23 09:24 | Outpatient (AMB) | payer OTHER, SELFPAY ==
--- NOTE | 2025-05-23 09:26 | A.OFFVIS_ITS ---
Vital Signs 05/23/25 09:27 Height 5 ft 5 in Weight 205 lb 6 oz BMI 34.2 BP 156/72 H Blood Pressure Location Rt brachial Position Sitting Pulse 50 Pulse Source Pulse Oximeter Pulse Oximetry (%) 97 Oxygen Delivery Method Room Air Intake Visit Reasons: Asthma/PALLAVI Desktop Publishing Specialist Required: Yes Desktop Publishing Specialist Language: Mountain Or Glacier Guide Services: Desktop Publishing Specialist Present Desktop Publishing Specialist Name: deloris Vela LM Allergies Sulfa (Sulfonamide Antibiotics) (Sulfa (Sulfonamides)) Allergy (Mild, Verified 05/23/25 09:30) RASH HPI HPI Asthma/PALLAVI: Details: Isidro is a pleasant 69 year old male, former 45 year smoker, quit 20 years ago, with underlying asthma, PALLAVI on CPAP through [facility], GERD, HTN, and CAD. He was referred by PCP for pulmonary evaluation. The patient has a history of asthma, diagnosed as an adult, and currently uses Advair and albuterol nebulizer treatments. He reports occasional forgetfulness in taking Advair twice daily, leading to suboptimal control of symptoms and increased use of Albuterol MDI. The patient experiences morning cough with clear to dark green sputum, indicating variable control of asthma symptoms, which has been present for the last month with associated chest congestion. Denies fevers or chills. He endorses seasonal allergies, no recent allergy testing and using Singulair in addition to daily antihistamine with moderate effect. Denies any occupational exposures. The patient has a history of smoking, having smoked one and a half packs per day for 30 years, quitting 20 years ago. The patient was diagnosed with severe sleep apnea following a home sleep test in September 2024, which showed 30 apneic episodes per hour and significant oxygen desaturation. Per titration he was started on CPAP therapy, which has improved his symptoms, resolved apneas as well as hypoxemia, although he reports anxiety with the mask and occasional dry mouth. He follows with [facility] and would like to continue to at this time. DME is [facility]. A previous chest CT in 2022 revealed multiple small pulmonary nodules, the largest being 4 mm, with recommendations for a 6 month follow up which was never scheduled. [facility] Medical History (Updated 05/23/25 @ 15:51 by Ying Douglas NP) Xerosis of skin Other specified epidermal thickening Nail disorder Nail dystrophy Tinea unguium Depression Neuropathy GERD (gastroesophageal reflux disease) Spine disorder Arthritis HTN (hypertension) Allergic Sinusitis Asthma Surgical History History of ankle surgery History of right hip replacement Family History Brother Asthma Substance abuse Sister Diabetes Social History (Updated 05/23/25 @ 09:30 by Deloris Walden [facility]) Household Members: Spouse Both parents involved: No Caregiver staying overnight: No Housing: Apartment Are you a primary transitional care manager to a significant other at home: No Do you presently have visiting nurse or other home services: Yes 75 years or older and lives alone: No Alcohol intake: never Patient Tobacco Use Status: Former Tobacco user e-Cigarette/Vaping Use: Never Used Second Hand Smoke Exposure: No service: No Current occupational status: disabled Current occupational exposures/hazards: No Cognitive needs: No Hearing needs: No Vision needs: Yes (wear glasses) Review of Systems Const Denies chills, Denies excessive sweating, Denies fever(s), Denies headache(s) and Denies night sweats Eyes Denies dry eyes, Denies irritation and Denies itchy eyes ENT Reports Normal hearing present, Denies headache(s), Denies nasal congestion, Denies nasal discharge and Denies sore throat Card Denies chest pain, Denies chest pain at rest, Denies chest pain with activity, Denies claudication, Denies leg edema, Reports dyspnea on exertion, Denies orthopnea and Denies paroxysmal nocturnal dyspnea Resp Reports chest congestion, Reports cough, Denies hemoptysis, Denies excessive phlegm production, Denies pain on inspiration, Denies pain with cough, Reports dyspnea on exertion, Denies stridor and Reports wheezing Musc Denies myalgias Neuro Reports Normal hearing present and Denies headache(s) Endo Denies excessive sweating Santo/Lymph Denies lymphadenopathy Aller/Immun Denies itchy eyes, Denies seasonal rhinorrhea and Reports wheezing Physical Exam Vital Signs: Last Vital Signs Pulse 50 05/23/25 09:27 BP 156/72 H 05/23/25 09:27 Pulse Ox 97 05/23/25 09:27 Oxygen Delivery Method Room Air 05/23/25 09:27 BMI result Body Mass Index 34.2 Const General: cooperative, healthy appearing, comfortable, no acute distress, well developed and alert Orientation/consciousness: patient oriented x3 Limitations: no limitations HEENT Head: Yes normal to inspection, Yes normocephalic and Yes atraumatic Ears: hearing grossly normal bilaterally and external ears normal Eyes General: appearance normal, both eyes and all related structures Eyelids: Yes eyelids normal Sclerae: sclerae normal EOM: EOMs intact bilaterally Neck Neck: Yes normal visual inspection and Yes no lymphadenopathy Lymphatic: no lymphadenopathy noted Chest Chest palpation & inspection: normal inspection of the chest Resp Effort & Inspection: normal respiratory effort, able to speak in complete sentences, no audible wheezes, Actively coughing Quality: dry, no stridor, not tachypneic, no tripod positioning and no use of accessory muscles Auscultation: crackles (inspiratory coarse RLL), no rhonchi, no wheezes and diminished lung sounds Cardio Jugular venous distension: no JVD Rate: regular rate Rhythm: regular rhythm Skin Other: warm, dry General skin exam: no rashes or lesions noted Neuro General: patient oriented x3 Cranial nerves: Yes Normal hearing present Cognition (Neuro): normal cognition Gait exam (Neuro): Normal gait present Extrem General: Yes normal to inspection, Yes capillary refill normal, Yes no clubbing, cyanosis or edema and Yes no pedal edema Psych Appearance: grossly normal and well kempt Speech and movement: Normal speech and movement present and Clear speech present Affect: normal affect Attitude: cooperative Thought process: Normal thought process present Thought content: Normal thought content present Insight: Good insight present (Psych) Judgement: Good judgement present (Psych) Assessment & Plan Assessment & Plan (1) Asthma: Code(s): J45.909 - Unspecified asthma, uncomplicated Category: Medical (2) PALLAVI on CPAP: Code(s): G47.33 - Obstructive sleep apnea (adult) (pediatric) Category: Medical (3) Environmental allergies: Code(s): Z91.09 - Other allergy status, other than to drugs and biological substances Category: Medical (4) Multiple pulmonary nodules: Code(s): R91.8 - Other nonspecific abnormal finding of lung field Category: Medical (5) Personal history of tobacco use: Code(s): Z87.891 - Personal history of nicotine dependence Category: Social Hx Plan Will treat current bronchitic symptoms with Doxycycline. He is aware to call if symptoms do not improve. The patient is advised to use Advair twice daily, morning and evening, to improve asthma control. He should rinse his mouth after use to prevent oral thrush. Will send for PFT to assess severity of obstructive defect and RAST to assess for an allergic component. Discussed the management of his sleep apnea with CPAP therapy which he will continue to follow with [facility] and the potential for using the Inspire device, for which a referral will be made at his request. Advised him on lifestyle modifications, such as weight loss and sleeping with his head elevated, to help manage his acid reflux and sleep apnea symptoms. Discussed the need for follow-up imaging to monitor his pulmonary nodules. All questions were answered and patient is in agreement of plan. Will follow up in 8-10 weeks or sooner if needed. Orders: Orders Resp Allergy Profile Region I Today Z91.09 - Other allergy status, other than to drugs and biological substances CT chest wo IV con Today R91.8 - Other nonspecific abnormal finding of lung f ield Immunoglobulin E Today Z91.09 - Other allergy status, other than to drugs and biological substances Complete Blood Count Auto Diff Today Z91.09 - Other allergy status, other than to drugs and biological substances PFT pulmonary function test Today J45.909 - Unspecified asthma, uncomplicated Referrals Plastic Surgery Referral G47.33 - Obstructive sleep apnea (adult) (pediatric) Medications: New fluticasone propion-salmeterol 250-50 mcg/dose (Advair Diskus) 1 inh inhalation Q12H 60 ea 3RF doxycycline hyclate 100 mg PO BID 14 caps 0RF Coding Level of Care Code New Pt Level 4 (49358) Complex EM visit Add On G2211 Diagnoses Asthma J45.909 PALLAVI on CPAP G47.33 Environmental allergies Z91.09 Multiple pulmonary nodules R91.8 Personal history of tobacco use Z87.891
[2025-05-23 09:27] VITALS: BP 156/72; PULSE 50; O2SAT 97; BMI 34.2
== END 2025-05-23 10:07 | disposition home or self-care (01) ==
LOC: HO.HPSW 09:25
PROVIDERS: PCP Nurse Practitioner Family; Referring Provider Nurse Practitioner Family; Visit Provider Nurse Practitioner Family
DX: J45.909 Unspecified asthma, uncomplicated (principal); G47.33 Obstructive sleep apnea (adult) (pediatric); Z91.09 Other allergy status, other than to drugs and biological substances; R91.8 Other nonspecific abnormal finding of lung field; Z87.891 Personal history of nicotine dependence
CPT/HCPCS: 99204; G2211

== ENCOUNTER 2025-05-24 10:16 | Outpatient (REF) | payer OTHER, SELFPAY ==
--- NOTE | ~2025-05-24 | US_ITS ---
EXAMINATION: US LOWER EXTREMITY VENOUS (REFLUX EXAM), BILATERAL CLINICAL INFORMATION: I 83.11. COMPARISON: None. TECHNIQUE: Color flow triplex imaging and compression Doppler was performed to evaluate both the deep and the superficial systems bilaterally. To evaluate the superficial system, the examination was performed in the upright position. Color-flow Doppler ultrasound and compression ultrasound were utilized. In addition, maneuvers were utilized to demonstrate reflux. FINDINGS: 1. DEEP VENOUS ULTRASOUND OF THE RIGHT LOWER EXTREMITY: Common Femoral Vein: Compressible, normal respiratory variation and augmented flow. Femoral Vein: Compressible, normal color flow and augmentation. Popliteal Vein: Compressible, normal augmentation. Deep Reflux: There is no evidence of reflux in the deep system in either the common femoral vein, superficial femoral or the popliteal vein. There is no evidence of a Spencer's cyst. 2. SUPERFICIAL ULTRASOUND WITH DOPPLER OF RIGHT LOWER EXTREMITY: GREAT SAPHENOUS VEIN: Saphenofemoral Junction: 0.6 cm; Reflux: 0 ms Proximal Thigh: 0.5 cm; Reflux: 0 ms Mid Thigh: 0.4 cm; Reflux: 0 ms Distal Thigh: 0.3 cm; Reflux: 0 ms At Knee: 0.4 cm; Reflux: 0 ms Proximal Calf: 0.3 cm; Reflux: 2592 ms Mid Calf: 0.3 cm; Reflux: 0 ms Distal Calf: 0.4 cm; Reflux: 0 ms DUPLICATED MEDIAL GREAT SAPHENOUS VEIN: Diameter: None imaged Reflux: NA DUPLICATED LATERAL GREAT SAPHENOUS VEIN: Diameter: None imaged Reflux: NA SMALL SAPHENOUS VEIN: Saphenopopliteal Junction: 0.4 cm; Reflux: 0 ms Proximal: 0.3 cm; Reflux: 0 ms Distal: 0.3 cm; Reflux: 2732 ms VEIN OF GIACOMINI: Size: 0.2 cm. Reflux: NA PERFORATORS: Location: Proximal and distal calf. Size: 0.2 and 0.4 cm. Reflux: NA VARICOSITIES: Location: Proximal calf. Size: 0.3 cm. Reflux: NA 3. DEEP VENOUS ULTRASOUND OF THE LEFT LOWER EXTREMITY: Common Femoral Vein: Compressible, normal respiratory variation and augmented flow. Femoral Vein: Compressible, normal color flow and augmentation. Popliteal Vein: Compressible, normal augmentation. Deep Reflux: There is no evidence of reflux in the deep system in either the common femoral vein, superficial femoral or the popliteal vein. There is no evidence of a Spencer's cyst. 4. SUPERFICIAL ULTRASOUND WITH DOPPLER OF LEFT LOWER EXTREMITY: GREAT SAPHENOUS VEIN: Saphenofemoral Junction: 0.8 cm; Reflux: 0 ms Proximal Thigh: 0.7 cm; Reflux: 0 ms Mid Thigh: 0.2 cm; Reflux: 0 ms Distal Thigh: 0.2 cm; Reflux: 0 ms At Knee: 0.2 cm; Reflux: 0 ms Proximal Calf: 0.3 cm; Reflux: 2492 ms Mid Calf: 0.3 cm; Reflux: 1952 ms Distal Calf: 0.3 cm; Reflux: 0 ms DUPLICATED MEDIAL GREAT SAPHENOUS VEIN: Diameter: None imaged Reflux: NA DUPLICATED LATERAL GREAT SAPHENOUS VEIN: Diameter: None imaged. Reflux: NA SMALL SAPHENOUS VEIN: Saphenopopliteal Junction: 0.4 cm; Reflux: 0 ms Proximal: 0.3 cm; Reflux: 0 ms Distal: 0.3 cm; Reflux: 0 ms VEIN OF GIACOMINI: Size: 0.3 cm. Reflux: NA PERFORATORS: Location: Proximal calf Size: 0.2 cm. Reflux: 2352 ms. VARICOSITIES: Location: Mid thigh and proximal calf. Size: 0.3 cm. Reflux: 2116 ms in the proximal calf. US/US venous insuf bilat IMPRESSION: Right: Venous insufficiency, great saphenous vein below the knee. Venous insufficiency, small saphenous vein at the distal calf. Perforators and varices without reflux. Left: Venous insufficiency, great saphenous vein below the knee to the mid calf. Venous insufficiency with reflux in the varices at proximal calf and perforators in the proximal calf. Electronically signed by: Xavi Tompkins MD 05/24/2025 11:42 AM VER[facility]ICA
--- OUTSIDE RECORDS SUMMARY | 2025-05-24 19:41 | XMS_ITS | Encounter Summary ---
Author Organization [employer] Address [address] [place] [address] Care Team Providers Care Pharmacy Stock Clerk Name Role Phone Physician, Pcp Unknown Primary Care Provider Lainey vailable Encounter Details Date Type Department Care Team (Late st Contact Info) Description 09/16/2024 Lab Requisition [facility] - Main Lab [address] [facility] [place] [address] Tiburcio Mistry PA [address] [place] [id number] Gross hematuria Social History Tobacco Use Types [...] and pathological findings. 09/21/2024 9:38 AM EDT [facility] Addendum electronically signed by Rubens Lopez MD on 09/21/2024 at 9:38 AM Final Diagnosis A. Urine, Voided, ([id number]): Negative for high grade urothelial carcinoma. Note: UroVysion testing to follow. 09/21/2024 9:38 AM EDT [facility] Clinical Information Gross hematuria R31.0 Urine Cytology/FISH (now) 09/21/2024 9:38 AM EDT [facility] Gross Description A. Urine, Voided, ([id number]): Received one ThinPrep slide for cytology and one ThinPrep slide for UroVysion FISH 09/21/2024 9:38 AM EDT [facility] Disclaimer Unless otherwise specified, all tissue is 10% NB formalin fixed and paraffin embedded. Technical pathology services provided by [facility] at [address] [place] [address] (CLIA #[id number]/Yin Grimes MD, Corporate Administrative Assistant) 09/21/2024 9:38 AM EDT [facility] Tissue Urine specimen from urethra / Unknown 09/12/2024 09/16/2024 1:43 PM EDT us [facility] PATHOLOGY ORDERABLES Edite d Result - Final [facility] [address] [place] [address], documented in this encounter Visit Diagnoses Diagnosis Gross hematuria documented in this encounter Care Teams Pharmacy Stock Clerk Relationship Specialty Start Date End Date Physician, Pcp Unknown PCP - General 09/16/24 documented as of this encounter
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
--- OUTSIDE RECORDS SUMMARY | 2025-05-24 19:41 | XMS_ITS | Data Portability ---
Author Organization [facility], [address] Address [address] [place] [address] Assessment No assessment recorded. Plan of Treatment Reminders Order Date Submit Date Provider Last Modified By Organization Details Last Modified Time Details Appointments None recorded. Lab urinalysis , complete 2022 023 [place] [facility], [address] [place] [address], [place], [address], 10:06:30 urinalysis , dipstick 2022 023 [place] [facility], [address] [place], [address], 16:41:47 Referral None recorded. Procedures None recorded. Surgeries None recorded. Imaging None recorded. Medication Orders None recorded. Patient TargetsNo targets recorded. Patient Instructions Encounter Date Encounter Id Patient Instructions Last Modified By Organization Details Last Modified Time 02/11/2023 [id number] blood in the urine: care instructions [email or web address] Not available 02/11/2023 13:30:43 Reason for Referral None Reported. Results Created Date Observation Date Name Description Value Unit Range Abnormal Flag Note LastModifiedBy Organization Detail LastModifiedTime 02/12/2002/13/2023 URINA LYSIS , COMPL ETE specific gravity 1.022 1.005- 1.030 Not Available [facility] ([facility]) [address] [facility], [place], [address], 02/13/2023 10:06:29 02/12/2002/13/2023 URINA LYSIS , COMPL ETE pH 5.5 5.0-7. 5 Not Available [facility] ([facility]) [address] [place], [address], 02/13/2023 10:06:29 02/12/20 23 02/13/2023 URINA LYSIS , COMPL ETE urine-color YELLOW yellow Not Available [facility] ([facility]) [address] [facility], [place], [address], 02/13/2023 10:06:29 02/12/20 23 02/13/2023 URINA LYSIS , COMPL ETE appearance CLEAR clear Not Available [facility] ([facility]) [address] [place], [address], 02/13/2023 10:06:29 02/12/20 23 02/13/2023 URINA LYSIS , COMPL ETE WBC esterase NEGATI VE negati ve Not Available [facility] ([facility]) [address] [place], [address], 02/13/2023 10:06:29 02/12/20 23 02/13/2023 URINA LYSIS , COMPL ETE protein 1+ negati ve/tra ce abnormal Not Available [facility] ([facility]) [address] [facility], [place], [address], 02/13/2023 10:06:29 02/12/20 23 02/13/2023 URINA LYSIS , COMPL ETE glucose NEGATI VE negati ve Not Available [facility] ([facility]) [address] [place], [address], 02/13/2023 10:06:29 02/12/20 23 02/13/2023 URINA LYSIS , COMPL ETE ketones NEGATI VE negati ve Not Available [facility] ([facility]) [address] [place], [address], 02/13/2023 10:06:29 02/12/20 23 02/13/2023 URINA LYSIS , COMPL ETE occult blood NEGATI VE negati ve Not Available [facility] ([facility]) [address] [place], [address], 02/13/2023 10:06:29 02/12/20 23 02/13/2023 URINA LYSIS , COMPL ETE bilirubin NEGATI VE negati ve Not Available [facility] ([facility]) [address] [place], [address], 02/13/2023 10:06:29 02/12/20 23 02/13/2023 URINA LYSIS , COMPL ETE urobilinogen ,semi-qn 0.2 mg/dL 0.2-1. 0 Not Available [facility] ([facility]) [address] [place], [address], 02/13/2023 10:06:29 02/12/20 23 02/13/2023 URINA LYSIS , COMPL ETE nitrite, urine NEGATI VE negati ve Not Available [facility] ([facility]) [address] [place], [address], 02/13/2023 10:06:29 02/12/20 23 02/13/2023 URINA LYSIS , COMPL ETE microscopic examination SEE BELOW: Micro scopi c was indic ated and was perfo rmed. Not Available [facility] ([facility]) [address] [place], [address], 02/13/2023 10:06:29 02/12/20 23 02/13/2023 URINA LYSIS , COMPL ETE WBC NONE SEEN /hpf 0 - 5 Not Available [facility] ([facility]) [address] [place], [address], 02/13/2023 10:06:29 02/12/20 23 02/13/2023 URINA LYSIS , COMPL ETE RBC NONE SEEN /hpf 0 - 2 Not Available [facility] ([facility]) [address] [place], [address], 02/13/2023 10:06:29 02/12/20 23 02/13/2023 URINA LYSIS , COMPL ETE epithelial cells (non renal) NONE SEEN /hpf 0 - 10 Not Available [facility] ([facility]) [address] [facility], [place], [address], 02/13/2023 10:06:29 02/12/20 23 02/13/2023 URINA LYSIS , COMPL ETE epithelial cells (renal) POWER SEWING MACHINE OPERATOR Not Available [facility] ([facility]) [address] [facility], [place], [address], 02/13/2023 10:06:29 02/12/20 23 02/13/2023 URINA LYSIS , COMPL ETE casts NONE SEEN /lpf none seen Not Available [facility] ([facility]) [address] [facility], [place], [address], 02/13/2023 10:06:29 02/12/20 23 02/13/2023 URINA LYSIS , COMPL ETE cast type POWER SEWING MACHINE OPERATOR Not Available [facility] ([facility]) [address] [facility], [place], [address], 02/13/2023 10:06:29 02/12/20 23 02/13/2023 URINA LYSIS , COMPL ETE crystals POWER SEWING MACHINE OPERATOR Not Available [facility] ([facility]) [address] [facility], [place], [address], 02/13/2023 10:06:29 02/12/20 23 02/13/2023 URINA LYSIS , COMPL ETE crystal type POWER SEWING MACHINE OPERATOR Not Available [facility]) [address] [facility] [place], [address], 02/13/2023 10:06:29 02/12/20 23 02/13/2023 URINA LYSIS , COMPL ETE mucus threads POWER SEWING MACHINE OPERATOR Not Available [facility] ([facility]) [address] [facility], [place], [address], 02/13/2023 10:06:29 02/12/20 23 02/13/2023 URINA LYSIS , COMPL ETE bacteria NONE SEEN none seen/f ew Not Available [facility] ([facility]) [address] [facility], [place], [address], 02/13/2023 10:06:29 02/12/20 23 02/13/2023 URINA LYSIS , COMPL ETE yeast POWER SEWING MACHINE OPERATOR Not Available [facility] ([facility]) [address] [facility], [place], [address], 02/13/2023 10:06:29 02/12/20 23 02/13/2023 URINA LYSIS , COMPL ETE trichomonas POWER SEWING MACHINE OPERATOR Not Available [facility] ([facility]) [address] [facility], [place], [address], 02/13/2023 10:06:29 02/12/20 23 02/13/2023 URINA LYSIS , COMPL ETE comment POWER SEWING MACHINE OPERATOR Not Available [facility] ([facility]) [address] [facility], [place], [address], 02/13/2023 10:06:29 02/12/20 23 02/13/2023 URINA LYSIS , COMPL ETE microscopic examination POWER SEWING MACHINE OPERATOR Not Available [facility]) [address] [facility], [place], [address], 02/13/2023 10:06:29 02/12/20 23 02/13/2023 NTI URINE [...] ete the follo wing and fax to [phone] to exped ite forrest griffin. Requi red [...] Autho rizat ion Form. Not Available [facility] ([facility]) [address] [facility], [place], [address], 02/13/2023 10:06:31 02/13/20 23 02/12/2023 urina lysis , dipst ick Unknown Analyte Normal = light yellow Not Available [facility] [address] [facility], [place], [address], 02/11/2023 13:08:08 02/13/20 23 02/12/2023 urina lysis , dipst ick Unknown Analyte Yellow Not Available [facility] [address] [place] [address], [phone], 02/11/2023 13:08:08 02/13/20 23 02/12/2023 urina lysis , dipst ick Unknown Analyte Normal = clear Not Available [facility] [address] [place] [address], [phone], 02/11/2023 13:08:08 02/13/20 23 02/12/2023 urina lysis , dipst ick Unknown Analyte Clear Not Available [facility] [address] [place] [address], [phone], 02/11/2023 13:08:08 02/13/20 23 02/12/2023 urina lysis , dipst ick Unknown Analyte Negati ve Not Available [facility] [address] [place] [address], [phone], 02/11/2023 13:08:08 02/13/20 23 02/12/2023 urina lysis , dipst ick Unknown Analyte Negati ve Not Available [facility] [address] [place] [address], [phone], 02/11/2023 13:08:08 02/13/20 23 02/12/2023 urina lysis , dipst ick Unknown Analyte Normal = negati ve Not Available [facility] [address] [place] [address], [phone], 02/11/2023 13:08:08 02/13/20 23 02/12/2023 urina lysis , dipst ick Unknown Analyte Normal = Negati ve Not Available [facility] [address] [place] [address], [phone], 02/11/2023 13:08:08 02/13/20 23 02/12/2023 urina lysis , dipst ick Unknown Analyte Normal = Negati ve Not Available [facility] [address] [place] [address], [phone], 02/11/2023 13:08:08 02/13/20 23 02/12/2023 urina lysis , dipst ick Unknown Analyte Negati ve Not Available [facility] [address] [place] [address], [phone], 02/11/2023 13:08:08 02/13/20 23 02/12/2023 urina lysis , dipst ick Unknown Analyte Normal = 1.010, 1.015, 1.020 Not Available [facility] [address] [place] [address], [phone], 02/11/2023 13:08:08 02/13/20 23 02/12/2023 urina lysis , dipst ick Unknown Analyte 1.020 Not Available [facility] [address] [place] [address], [phone], 02/11/2023 13:08:08 02/13/20 23 02/12/2023 urina lysis , dipst ick Unknown Analyte Normal = Negati ve Not Available [facility] [address] [place] [address], [phone], 02/11/2023 13:08:08 02/13/20 23 02/12/2023 urina lysis , dipst ick Unknown Analyte Modera te Not Available [facility] [address] [place] [address], [phone], 02/11/2023 13:08:08 02/13/20 23 02/12/2023 urina lysis , dipst ick Unknown Analyte Normal = 6.5, 7.0, 7.5, 8.0 Not Available [facility] [address] [place] [address], [phone], 02/11/2023 13:08:08 02/13/20 23 02/12/2023 urina lysis , dipst ick Unknown Analyte 5.5 Not Available [facility] [address] [place] [address], [address], 02/11/2023 13:08:08 02/13/20 23 02/12/2023 urina lysis , dipst ick Unknown Analyte Normal = Negati ve Not Available [facility] [address] [place] [address], [phone], 02/11/2023 13:08:08 02/13/20 23 02/12/2023 urina lysis , dipst ick Unknown Analyte 30 mg/dL Not Available [facility] [address] [place] [address], [phone], 02/11/2023 13:08:08 02/13/20 23 02/12/2023 urina lysis , dipst ick Unknown Analyte Normal = 0.2, 1.0 Not Available [facility] [address] [place] [address], [phone], 02/11/2023 13:08:08 02/13/20 23 02/12/2023 urina lysis , dipst ick Unknown Analyte 0.2 E.U./d L Not Available [facility] [address] [place] [address], [phone], 02/11/2023 13:08:08 02/13/20 23 02/12/2023 urina lysis , dipst ick Unknown Analyte Normal = Negati ve Not Available [facility] [address] [place] [address], [phone], 02/11/2023 13:08:08 02/13/20 23 02/12/2023 urina lysis , dipst ick Unknown Analyte Negati ve Not Available [facility] [address] [place], [address], 02/11/2023 13:08:08 02/13/20 23 02/12/2023 urina lysis , dipst ick Unknown Analyte Normal = Negati ve Not Available [facility] [address] [place], [address], 02/11/2023 13:08:08 02/13/20 23 02/12/2023 urina lysis , dipst ick Unknown Analyte Negati ve Not Available [facility] [address] [place], [address], 02/11/2023 13:08:08 Result Notes None recorded. Problems Name Problem SNOMED Code Status Onset Date Resolution Date Notes Provider Name and Address Organization Details Recorded Time Hypertensive disorder 86196513 Active 2022 ALBERT Bennett - [facility] 3 12:25:48 Problem Notes None recorded. Medical Equipment None Reported. Allergies Allergen ID Allergen Name Allergen Category Reaction Reaction Severity Criticality Documentation Date Start Date Code Code System Note Provider Name and Address Organization Details Recorded Time 178359 Substance with sulfonami de structure and antibacte rial mechanism of action (substanc e) medicatio n Not available Not available Not available 02/11/2023 12039 8003 SNOMED ALBERT Bennett [facility] [...] Updated DateTime 3 165.1 cm 32.4 kg/m2 72304.5 1 g 97 % 97 % 89 [...] [facility] 02/11/2023 12:24:43 Pneumococcal conjugate PCV20, polysaccharide ZGI925 conjugate, adjuvant, PF 2 completed LIONEL GREEN [...] ICD10 Code Diagnosis IMO Codes Diagnosis Note [id number] [facility] [address] [place] [address] 12/12/2019 12:11:16 12/12/2019 12:45:42 [id number] [place] [address] [phone] 02/11/2023 12:07:07 02/11/2023 13:34:02 Muscle pain 07785885 M79.10 Discussed different possibilit ies of cause of bodyaches, chills and fatigue. Sometimes a Virus can present in this manner. Covid was negative and Urine shows you have no infection or dehydratio n. Suggest resting and hydrating if there is any worsening of symptoms should be seen again immediatel y or if no improvemen t to return for further workup Microscopic hematuria 19 [id number] R31.29 microscopi c blood in urineRhabd o [...] Connolly Member ID Guarantor Name 02/22/[address] [facility] - MEDICARE PREFERRED (MEDICARE REPLACEMENT HMO) SCOIND Isidro Anton Manuel [id number] Isidro Jackson 02/11/2023 1 [facility] - DOS PRIOR TO 2022 - DUAL ELIGIBLE (MEDICARE REPLACEMENT/ADV ANTAGE - HMO) Isidro Manuel [id number] Isidro Jackson Notes Date Note Type Note Provider Name and Address Organization Details Recorded Time 02/11/2023 text/html Generic HPI TemplateReported by PatientHPIFor context, patient reportsno foreign travel. 3 days of feeling bodyaches chills and sweats. [id number] after bee stings, no visble lesions from bees on skin Narcisa Avendano MD [address] [place] [address] [place], [address], [place] - [facility] 02/22/2023 08:21:05
== END 2025-05-24 10:17 | disposition home or self-care (01) ==
LOC: HO.US 10:16
PROVIDERS: PCP Nurse Practitioner Family; Visit Provider Surgery Vascular Surgery
DX: I83.11 Varicose veins of right lower extremity with inflammation (principal)
CPT/HCPCS: 93970

== ENCOUNTER → 2025-05-24 10:18 | Outpatient (BNV) | payer OTHER, SELFPAY | PROVIDERS: PCP Nurse Practitioner Family; Visit Provider Radiology Diagnostic Radiology | DX: I87.2 Venous insufficiency (chronic) (peripheral) (principal) | CPT/HCPCS: 93970 ==